=== PATIENT | female | born 1945 | race Two or more races ===

== ENCOUNTER 2019-01-27 14:14 | Emergency (ER) | payer SELFPAY ==
[~2019-01-27] VITALS: Ht 152.4 cm; Wt 113.4 kg
--- OUTSIDE RECORDS SUMMARY | ~2019-01-27 | XMS | Encounter Summary ---
Demographics + + + | Address | [address] | | | [place] [address] | + + + | Preferred Language | Unknown | + + + | Marital Status | | + + + | Protestant Affiliation | Unknown | + + + | Race | Unknown | + + + | Ethnic Group | Other Race | + + + Author + + + | Author | [facility] | + + + | Organization | [facility] | + + + | Address | Unknown | + + + | Phone | Unavailable | + + + Care Team Providers + +------+ + | Care Cast Shell Grinder Name | Role | Phone | + +------+ + PCP | Unavailable | + +------+ + Encounter Details +--------+ + + + + | Date | Type | Department | Care Team | Description | +--------+ + + + + | 06/15/ | Ancillary | Registration [address] | Other, Faculty | | | 2004 | Registratio | [address] | [phone] | | | | [address] | [address] Mailcode: [address] | | | | | | [place], [place] | | | | | | [address] | | | | | | [phone] | | | +--------+ + + + + Social History + +-------+ +--------+------+ | Tobacco Use | Types | Packs/Day | Years | Date | | | | | Used | | + +-------+ +--------+------+ | Never Assessed | | | | | + +-------+ +--------+------+ + + + | Sex Assigned at | Date Recorded | | | | + + + | Not on file | | + + + + + + + | Job Start Date | Occupation | Industry | + + + + | Not on file | Not on file | Not on file | + + + + + + + + | Travel History | Travel Start | Travel End | + + + + + + | No recent travel history available. | + + documented as of this encounter Plan of Treatment Not on filedocumented as of this encounter Procedures + +--------+ + + + | Procedure Name | Priori | Date/Time | Associated Diagnosis | Comments | | | ty | | | | + +--------+ + + + | HEMATOPATHOLOGY | Routin | 06/15/2004 | | Results for this | | | e | | | procedure are in the | | | | | | results section. | + +--------+ + + + documented in this encounter Results HEMATOPATHOLOGY (06/15/2004) + + + + + + | Component | Value | Ref Range | Performed | Pathologist | | | | | At | Signature | + + + + + + | HEMATOPATHO | SOURCE OF SPECIMEN:A | | [facility] | | | LOGY | Outside consultation | | DEPARTMENT | | | | Clinical History:The | | OF | | | | patient is a 58-year-old | | PATHOLOGY | | | | woman with follicular | | | | | | lymphoma. Final | | | | | | Pathologic | | | | | | Diagnosis:Lymph node, | | | | | | biopsy ([id number]): | | | | | | - Diffuse large | | | | | | B-cell lymphoma (70%) | | | | | | arising from | | | | | | follicularlymphoma, | | | | | | grade III (30%) Case | | | | | | reviewed by:Leo Renae, | | | | | | M.D., Ph.D. | | | | | | /HematopathologistT:05/30 | | | | | | 04/04/ I have reviewed | | | | | | all diagnostic slides | | | | | | and other materials and | | | | | | have editedall portions | | | | | | of this report as part | | | | | | of my pathologic | | | | | | assessment and | | | | | | finaldiagnosis. | | | | | | | | | | | | | | | | | | | | | | | | Gross | | | | | | Description:Received on | | | | | | 06/15/04 for evaluation | | | | | | from Dr. Rah Arnold, | | | | | | [facility], | | | | | | [place], [place], are | | | | | | seven slides and seven | | | | | | blocks, bearingaccession | | | | | | number [id number]. | | | | | | Microscopic | | | | | | Description:Sections of | | | | | | the lymph node biopsy | | | | | | reveals a nodular and | | | | | | diffuse | | | | | | lymphocyticinfiltrate. | | | | | | The nodular area shows | | | | | | small and large | | | | | | lymphocytes. Some | | | | | | ofthe nodules contain | | | | | | large cells>15/hpf. | | | | | | Diffuse area composed | | | | | | ofpredominantly large | | | | | | lymphocytes. The | | | | | | diffuse area is about | | | | | | 70% of theentire biopsy. | | | | | | Immunohistochemical | | | | | | stains were performed on | | | | | | blocks A2 and A4 by | | | | | | animmunoperoxidase | | | | | | technique with | | | | | | antibodies against CD3, | | | | | | CD20, CD10, CD21,and | | | | | | Bcl-2. The lymphoma | | | | | | cells are positive for | | | | | | CD20, CD10, and | | | | | | Bcl-2.CD21 highlights | | | | | | the nodular and diffuse | | | | | | areas. Background | | | | | | T-cells arepositive for | | | | | | CD3.(Analyte specific | | | | | | reagents are used in | | | | | | many laboratory tests | | | | | | necessary forstandard | | | | | | medical care and | | | | | | generally do not require | | | | | | FDA approval. This | | | | | | testwas developed and | | | | | | its performance | | | | | | characteristics | | | | | | determined by | | | | | | [facility]. It | | | | | | has not been cleared or | | | | | | approved by the [place] Food | | | | | | and | | | | | | DrugAdministration.)Rend | | | | | | matt Diagnostician: | | | | | | Leo Renae | | | | | | Simone,Ph.D.PathologistEle | | | | | | ctronically Signed | | | | | | 06/22/2004Comment: | | | | | | SOURCE OF SPECIMEN: | | | | | | Outside consultation | | | | + + + + + + + + | Specimen | + + | | + + + + + | Narrative | Performed At | + + + | Ordered by [facility] | | | DEPARTMENT OF | | | PATHOLOGY | + + + + + + + + | Performing | Address | City/State/Zipcode | Phone Number | | Organization | | | | + + + + + | [facility] | [address] | [place], [place] [address] | | | PATHOLOGY | [address] | | | + + + + + | [facility] | [address] | [place] [address] | | | PATHOLOGY | [address] | | | + + + + + documented in this encounter Visit Diagnoses Not on filedocumented in this encounter"
--- OUTSIDE RECORDS SUMMARY | ~2019-01-27 | XMS | Clinical Summary ---
Demographics + + + | Address | [address] | | | [place] [address] | + + + | Home Phone | | + + + | Preferred Language | Unknown | + + + | Marital Status | | + + + | Anabaptism Affiliation | [id number] | + + + | Race | Unknown | + + + | Ethnic Group | Unknown | + + + Author + + + | Author | [facility] (Historical as of | | | 10-14-18) | + + + | Organization | [facility] (Historical as of | | | 10-14-18) | + + + | Address | Unknown | + + + | Phone | Unavailable | + + + Support + + +---------+ + | Name | Relationship | Address | Phone | + + +---------+ + | AnneMarisa | ECON | Unknown | | | [place] | | | | + + +---------+ + | Sonya Rodríguez | ECON | Unknown | | | ([place]) | | | | + + +---------+ + | Vasiliy Hager | ECON | Unknown | | + + +---------+ + | Alli Rodríguez | ECON | Unknown | | + + +---------+ + Care Team Providers + +------+ + | Care Finisher Polisher Name | Role | Phone | + +------+ + | Tiarra Joyner PA-C | PP | | + +------+ + Allergies No Known Allergies Current Medications + + +---------+---------+------+------+-------+ | Prescription | Sig. | Disp. | Refills | Star | End | Statu | | | | | | t | Date | s | | | | | | Date | | | + + +---------+---------+------+------+-------+ | omeprazole | Take 20 mg by mouth | | | | | Activ | | (PRILOSEC) 20 MG | daily. | | | | | e | | capsule | | | | | | | + + +---------+---------+------+------+-------+ | levothyroxine | Take 75 mcg by mouth | | | | | Activ | | (SYNTHROID) 75 MCG | daily. | | | | | e | | tablet | | | | | | | + + +---------+---------+------+------+-------+ | loratadine | Take 10 mg by mouth | | | | | Activ | | (CLARITIN) 10 MG | daily. | | | | | e | | tablet | | | | | | | + + +---------+---------+------+------+-------+ | nitroGLYCERIN | Place 0.4 mg under | | | | | Activ | | (NITROSTAT) 0.4 MG | the tongue every 5 | | | | | e | | SL tablet | (five) minutes as | | | | | | | | needed for Chest | | | | | | | | pain. | | | | | | + + +---------+---------+------+------+-------+ | acetaminophen | Take 650 mg by mouth | | | | | Activ | | (TYLENOL) 325 MG | every 12 (twelve) | | | | | e | | tablet | hours as needed for | | | | | | | | Pain. | | | | | | + + +---------+---------+------+------+-------+ | senna (SENOKOT) | Take 17.2 mg by | | | 08/29 | | Activ | | 8.6 MG tablet | mouth daily. | | | 04/19 | | e | | | | | | 18 | | | + + +---------+---------+------+------+-------+ | Insulin | BD Insulin Syringe | | | | | Activ | | Syringe-Needle U-100 | Ultra-Fine 0.5 mL 31 | | | | | e | | (INSULIN SYRINGE | gauge x 5/16" | | | | | | | .5CC/31GX5/16") 31G | | | | | | | | X 5/16" 0.5 ML MISC | | | | | | | + + +---------+---------+------+------+-------+ | gabapentin | 100 mg. | | | | | Activ | | (NEURONTIN) 100 MG | | | | | | e | | capsule | | | | | | | + + +---------+---------+------+------+-------+ | albuterol | Inhale 2 puffs into | | | 11 | | Activ | | (PROVENTIL | the lungs. | | | 0/20 | | e | | HFA;VENTOLIN HFA) | | | | 18 | | | | 108 (90 Base) | | | | | | | | MCG/ACT inhaler | | | | | | | + + +---------+---------+------+------+-------+ | clopidogrel | Take 1 tablet by | 90 | 0 | 04/1 | 04/1 | Activ | | (PLAVIX) 75 MG | mouth daily. | tablet | | 7/20 | 6/20 | e | | tablet | | | | 19 | 20 | | + + +---------+---------+------+------+-------+ | insulin - MIX | Inject 10 Units into | 10 mL | 0 | 08/1 | | Activ | | insulin NPH-insulin | the skin 2 (two) | | | 0/20 | | e | | regular 70/30 | times daily before | | | 19 | | | | (HUMULIN 70/30) | meals. | | | | | | | (70-30) 100 UNIT/ML | | | | | | | | injection | | | | | | | + + +---------+---------+------+------+-------+ | sevelamer | Take 2 tablets by | 180 | 1 | 08/1 | 08/0 | Activ | | (RENVELA) 800 MG | mouth 3 (three) | tablet | | 0/20 | 9/20 | e | | tablet | times daily with | | | 19 | 20 | | | | meals. | | | | | | + + +---------+---------+------+------+-------+ | oxycodone 10 MG | Take by mouth. | | | | | Activ | | tablet | | | | | | e | + + +---------+---------+------+------+-------+ | sertraline | Take 50 mg by mouth | | | | | Activ | | (ZOLOFT) 50 MG | daily. | | | | | e | | tablet | | | | | | | + + +---------+---------+------+------+-------+ | meclizine | Take 25 mg by mouth | | | | | Activ | | (ANTIVERT) 25 MG | 3 (three) times | | | | | e | | tablet | daily as needed. | | | | | | + + +---------+---------+------+------+-------+ | pravastatin | Take 1 tablet by | 30 | 11 | 09/28 | 09/28 | Activ | | (PRAVACHOL) 20 MG | mouth nightly. | tablet | | 10/17 | 09/16 | e | | tablet | | | | 19 | 20 | | + + +---------+---------+------+------+-------+ | aspirin 81 MG | Take 1 tablet by | 30 | 1 | 11/30 | 11/30 | Expir | | tablet | mouth daily with | tablet | | 03/19 | 03/19 | ed | | | breakfast. | | | 18 | 19 | | + + +---------+---------+------+------+-------+ Active Problems + + + | Problem | Noted Date | + + + | ESRD on hemodialysis (HCC) | 10/05/2018 | + + + | Diabetic neuropathy associated with type 2 diabetes mellitus | 10/03/2018 | | (HCC) | | + + + | Depression | 10/03/2018 | + + + | Peripheral vascular disease (HCC) | 10/03/2018 | + + + | CVA (cerebral vascular accident) ([facility]) | 10/03/2018 | + + + | Chronic bilateral low back pain with left-sided sciatica | 03/12/2018 | + + + + + | Overview: Last Assessment & Plan: It is possible the | | patient's foot pain could be a symptom of lumbar radiculopathy. | | I do not believe the patient would be a very good surgical | | candidate. But further work-up should be pursued if she is not | | responding well to therapy directed from podiatry. Patient | | apparently has had this pain for long-standing issue. | + + + + + | Mediastinal adenopathy | 03/07/2018 | + + + + + | Overview: Added automatically from request for surgery [id number] | + + + + + | Severe protein-calorie malnutrition (HCC) | 01/31/2018 | + + + | Lymphadenopathy | 01/24/2018 | + + + + + | Overview: Added automatically from request for surgery [id number] | + + + + + | Headache | 12/25/2017 | + + + | QT prolongation | 11/05/2017 | + + + | Musculoskeletal chest pain | 10/30/2017 | + + + | Secondary hyperparathyroidism of renal origin (HCC) | 09/05/2017 | + + + | Squamous cell carcinoma of cervix (HCC) | 09/05/2017 | + + + | Multiple pulmonary nodules | 09/03/2017 | + + + | Uterine cancer (HCC) | 09/03/2017 | + + + | Primary cancer of uterus with metastasis to other site (HCC) | 09/03/2017 | + + + | Postmenopausal bleeding | 08/31/2017 | + + + | 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 | 08/31/2017 | | dialysis, with long-term current use of insulin (HCC) | | + + + | First degree atrioventricular block | 08/14/2017 | + + + | Renal cyst | 08/05/2017 | + + + | Steatosis of liver | 08/05/2017 | + + + | Parapneumonic effusion | 07/28/2017 | + + + | Degeneration of intervertebral disc | 06/25/2017 | + + + | 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 | 05/15/2017 | + + + | Diabetic retinopathy (HCC) | 08/25/2016 | + + + | Hypothyroidism | 08/25/2016 | + + + | Globus hystericus | 08/25/2016 | + + + | Gastric ulcer | 08/25/2016 | + + + | Chronic constipation | 08/25/2016 | + + + | Coronary atherosclerosis | 08/25/2016 | + + + | Essential hypertension | 08/25/2016 | + + + | Neuritis | 08/25/2016 | + + + | Atherosclerosis of coronary artery | 08/25/2016 | + + + | Abnormal result of cardiovascular function study | 10/20/2015 | + + + | Vitamin D deficiency | 10/15/2015 | + + + | Diffuse large B-cell lymphoma of lymph nodes of multiple sites | 08/28/2015 | | (HCC) | | + + + | GERD (gastroesophageal reflux disease) | 05/25/2015 | + + + | Hyperlipidemia | 05/25/2015 | + + + | GERD (gastroesophageal reflux disease) | 05/25/2015 | + + + | Renovascular hypertension | 03/17/2015 | + + + | Anemia of chronic renal failure, stage 5 (HCC) | 03/17/2015 | + + + | Hypoalbuminemia | 03/17/2015 | + + + | Hyperphosphatemia | 03/17/2015 | + + + | Nonspecific abnormal electrocardiogram (ECG) (EKG) | 03/11/2015 | + + + | Diabetes mellitus, insulin dependent (IDDM), uncontrolled | 03/11/2015 | + + + + + | Overview: On Insulin ADVANCED MANUFACTURING TECHNICIAN will continue and monitor POCT | + + + + + | Left leg pain | 03/07/2015 | + + + + + | Overview: 2 weeks ago seen by Vascular has good flow on | | angiography but still complaining of Pain on Plavix and ASA | + + + + + | Hypertension associated with stage 5 chronic kidney disease due | 03/07/2015 | | to type 2 diabetes mellitus (HCC) | | + + + | ESRD on dialysis | 03/07/2015 | + + + + + | Overview: Overview: Patient currently receives dialysis on | | Tuesday, Tuesday and TuesdayThe patient is having difficulty with | | compliance Last Assessment & Plan: Patient told me I was | | supposed to make adjustments to her dialysis and hypertension | | management because she continues to have low blood pressure | | problems which have been noted for some time. Her blood pressure | | was normal at today's exam. I advised the patient that I do not | | manage dialysis. It is unclear if her medications may be | | causing her to be hypertensive. I would like her to reduce her | | use of oxycodone prior to dialysis. She was having this problem | | before she was started using oxycodone. I had spoke to | | nephrology about using oxycodone and felt it was okay the lower | | dosing. Absolutely avoid use of morphine. | + + + + + | Chronic pain | 03/07/2015 | + + + | Right renal mass | 03/07/2015 | + + + | Malignant lymphoma, large cell, diffuse (HCC) | 01/22/2014 | + + + | Malignant lymphoma, small lymphocytic (HCC) | 01/22/2014 | + + + | Warts | 08/22/2012 | + + + | Murmur, cardiac | 09/27/2011 | + + + | DM (diabetes mellitus), type 2 | 12/30/2010 | + + + | Hypertension | 11/05/2010 | + + + | Fibromyositis | 11/25/2009 | + + + | Major depression, single episode | 05/13/2009 | + + + Resolved Problems + + + + | Problem | Noted | Resolved | | | Date | Date | + + + + | Hyperkalemia | 02/04/20 | | | | 18 | 9 | + + + + + + | Overview: K 6.8 with EKG Changes Bradycardia | | Nephrology consulted will do HD tonite | + + + + + + | DEAL (dyspnea on exertion) | 12/26/19 | | | | 18 | 8 | + + + + | Chest pressure | 12/26/19 | | | | 18 | 8 | + + + + | Subcapsular hepatic hematoma | 11/20/19 | | | | 18 | 9 | + + + + | Hypotension | 11/20/19 | | | | 18 | 8 | + + + + | Severe anemia | 11/20/19 | | | | 18 | 8 | + + + + | Post-op pain | 11/20/19 | | | | 18 | 8 | + + + + | Acute posthemorrhagic anemia | 11/06/19 | | | | 18 | 8 | + + + + | Hyperkalemia | 11/06/19 | | | | 18 | 8 | + + + + | Syncope and collapse | 11/06/19 | | | | 18 | 8 | + + + + | Hypotension due to blood loss | 11/06/19 | | | | 18 | 8 | + + + + | Postoperative hypovolemic shock | 11/06/19 | | | | 18 | 8 | + + + + | Metabolic encephalopathy | 11/02/19 | | | | 18 | 8 | + + + + | Hyperkalemia | 10/31/19 | | | | 18 | 8 | + + + + | Symptomatic bradycardia | 10/31/19 | | | | 18 | 9 | + + + + | Endomyometritis | 09/04/19 | | | | 18 | 8 | + + + + | Acute endometritis | 09/01/19 | | | | 18 | 8 | + + + + | Sepsis (HCC) | 09/01/19 | | | | 18 | 8 | + + + + | Cholecystitis | 08/15/19 | | | | 18 | 8 | + + + + | Shortness of breath | 07/29/19 | | | | 18 | 9 | + + + + | Syncope | 07/29/19 | | | | 18 | 8 | + + + + | Elevated INR | 05/14/19 | | | | 18 | 8 | + + + + | Anemia | 05/13/19 | | | | 18 | 8 | + + + + | Gallstone pancreatitis | 11/30/19 | | | | 17 | 7 | + + + + | Calculus of gallbladder | 11/30/19 | | | | 17 | 8 | + + + + | Anemia of chronic renal failure, unspecified stage | 06/23/19 | | | | 17 | 8 | + + + + | Hypertensive urgency | 05/25/19 | | | | 16 | 8 | + + + + | Epigastric abdominal pain | 05/25/19 | | | | 16 | 8 | + + + + | Hyperphosphatemia | 03/17/19 | | | | 16 | 8 | + + + + | Upper GI bleed | 03/11/19 | | | | 16 | 8 | + + + + | Acute blood loss anemia | 03/11/19 | | | | 16 | 8 | + + + + | Hyperkalemia | 03/11/19 | | | | 16 | 8 | + + + + | Hypothermia | 03/11/19 | | | | 16 | 6 | + + + + | Decreased level of consciousness | 03/11/19 | | | | 16 | 8 | + + + + | Weakness of left upper extremity | 03/11/19 | | | | 16 | 9 | + + + + | Generalized abdominal pain | 03/07/19 | | | | 16 | 6 | + + + + | Fever in adult | 03/07/19 | | | | 16 | 6 | + + + + | Bacterial pneumonia, unspecified | 04/05/19 | | | | 13 | 6 | + + + + | Nausea with vomiting | 04/05/19 | | | | 13 | 6 | + + + + | Gastroenteritis, acute | 09/27/19 | | | | 12 | 6 | + + + + | Chest pain at rest | 09/27/19 | | | | 12 | 6 | + + + + | Metabolic acidosis | 09/27/19 | | | | 12 | 6 | + + + + | Hyperkalemia | 09/26/19 | | | | 12 | 6 | + + + + | Diarrhea | 09/26/19 | | | | 12 | 6 | + + + + | Abdominal pain | 09/26/19 | | | | 12 | 8 | + + + + | Vomiting | 09/26/19 | | | | 12 | 6 | + + + + | Pneumonia, organism unspecified(486) | 12/31/19 | | | | 11 | 6 | + + + + | Hypotension | 04/24/19 | | | | 10 | 8 | + + + + Immunizations + + + + | Name | Dates Previously Given | Next Due | + + + + | Pneumococcal | 09/27/2011 | | | Polysaccharide | | | | 23-valent | | | + + + + Family History + + +------+ + | Medical History | Relation | Name | Comments | + + +------+ + | Heart disease | Father | | | + + +------+ + | Hypertension | Mother | | | + + +------+ + | Diabetes | Other | | | + + +------+ + | Kidney disease | Neg Hx | | | + + +------+ + | Malig hypertherm | Neg Hx | | | + + +------+ + + +------+ + + | Relation | Name | Status | Comments | + +------+ + + | Father | | | at 81 with [place] | + +------+ + + | Mother | | Alive | | + +------+ + + | Other | | | | + +------+ + + Social History + +-------+ +--------+------+ | Tobacco Use | Types | Packs/Day | Years | Date | | | | | Used | | + +-------+ +--------+------+ | Never Smoker | | | | | + +-------+ +--------+------+ + +---+---+---+ | Smokeless Tobacco: | | | | | Never Used | | | | + +---+---+---+ + + +---------+ + | Alcohol Use | Drinks/We | oz/Week | Comments | | | ek | | | + + +---------+ + | No | | | | + + +---------+ + + + + | Sex Assigned at | Date Recorded | | | | + + + | Not on file | | + + + Last Filed Vital Signs + + + + | Vital Sign | Reading | Time Taken | + + + + | Blood Pressure | 112/64 | 10/11/2018 9:41 AM PDT | + + + + | Pulse | 46 | 10/11/2018 9:41 AM PDT | + + + + | Temperature | 36.6 C (97.9 F) | 10/07/2018 3:19 PM PDT | + + + + | Respiratory Rate | 16 | 10/07/2018 3:19 PM PDT | + + + + | Oxygen Saturation | 99% | 10/11/2018 9:41 AM PDT | + + + + | Inhaled Oxygen | - | - | | Concentration | | | + + + + | Weight | 68.9 kg (152 lb) | 10/11/2018 9:41 AM PDT | + + + + | Height | 152.4 cm (5') | 10/11/2018 9:41 AM PDT | + + + + | Body Mass Index | 29.69 | 10/11/2018 9:41 AM PDT | + + + + Plan of Treatment +--------+ + + + + | Date | Type | Specialty | Care Team | Description | +--------+ + + + + | 02/01/ | Appointment | | | | | 2018 | | | | | +--------+ + + + + | 02/01/ | Appointment | | | | | 2018 | | | | | +--------+ + + + + | 02/01/ | Office | | Mirela Mcdaniel DNP | | | 2019 | Visit | | [address] | | | | | | [place] | | | | | | [address] | | | | | | | | +--------+ + + + + + + + + + | Health Maintenance | Due Date | Last Done | Comments | + + + + + | Diabetic Eye Exam | | | | | | 7 | | | + + + + + | Diabetic Foot Exam | | | | | | 7 | | | + + + + + | Vaccine: | | | | | Dtap/Tdap/Td (1 - | 6 | | | | Tdap) | | | | + + + + + | Breast Cancer | | | | | Screening | 7 | | | | (Mammogram) | | | | + + + + + | Colon Cancer | | | | | Screening | 7 | | | | (Colonoscopy) | | | | + + + + + | Vaccine: Zoster (1 | | | | | of 2) | 7 | | | + + + + + | DEXA SCAN SCREENING | | | | | | 2 | | | + + + + + | Vaccine: | | 09/27/2011 | | | Pneumococcal 65+ | 3 | | | | High/Highest Risk (2 | | | | | of 2 - PCV13) | | | | + + + + + | Vaccine: Influenza | | | | | (#1) | 9 | | | + + + + + | Hemoglobin A1c | | 10/03/2018, 12/26/2017, | | | | 9 | 09/01/2017, Additional history | | | | | exists | | + + + + + Results Not on filefrom Last 3 Months Insurance + +--------+ +------+-------+---------+ | Payer | Benefi | Subscriber | Type | Phone | Address | | | t Plan | ID | | | | | | / | | | | | | | Group | | | | | + +--------+ +------+-------+---------+ | [employer] | [employer] | [id number] | | | | | | HEALTH | | | | | | | PLAN | | | | | + +--------+ +------+-------+---------+ + +--------+ +--------+ + + | Guarantor Name | Accoun | Relation to | Date | Phone | Billing Address | | | t Type | Patient | of | | | | | | | | | | + +--------+ +--------+ + + | JANY [place]LLINS [place] | Person | Self [birth year] | Home: | [address] | | [place] | al/Fam | | [phone] | [phone] [place] | | | [place] | | [phone] | + +--------+ +--------+ + +
--- OUTSIDE RECORDS SUMMARY | ~2019-01-27 | XMS | Encounter Summary ---
Demographics + + + | Address | [address] | | | [place] [address] | + + + | Preferred Language | Unknown | + + + | Marital Status | | + + + | Sabianism Affiliation | Unknown | + + + | Race | Unknown | + + + | Ethnic Group | Other Race | + + + Author + + + | Author | [facility] | + + + | Organization | [facility] | + + + | Address | Unknown | + + + | Phone | Unavailable | + + + Care Team Providers + +------+ + | Care Tumbling Machine Operator Name | Role | Phone | + +------+ + PCP | Unavailable | + +------+ + Encounter Details +--------+ + + + + | Date | Type | Department | Care Team | Description | +--------+ + + + + | 06/15/ | Ancillary | Registration [address] | Other, Faculty | | | 2004 | Registratio | [address] | [phone] | | | | [address] | [address] Mailcode: [id number] | | | | | | [place], [place] | | | | | | [address] | | | | | | [phone] | | | +--------+ + + + [...] | | | | | | biopsy ([id number]): | | | | | | - [...] [place], | | | | | | [facility], | | | | | | [place], [place], are | | | | | | seven slides and seven | | | | | | blocks, bearingaccession | | | | | | number [id number]. | | | | | | Microscopic [...] DEPARTMENT OF | [address] | [place], [place] [address] | | | PATHOLOGY | [address] | | | + + + + + | [facility] | [address] | [place] [address] | | | PATHOLOGY | [address] | | | + + + + + documented in this encounter Visit Diagnoses Not on filedocumented in this encounter"
--- OUTSIDE RECORDS SUMMARY | ~2019-01-27 | XMS | Clinical Summary ---
Demographics + + + | Address | [address] | | | [place] [address] | + + + | Home Phone | | + + + | Preferred Language | Unknown | + + + | Marital Status | | + + + | Yarsanism Affiliation | [id number] | + + + | Race | Unknown | + + + | Ethnic Group | Unknown | + + + Author + + + | Author | [employer] (Historical as of | | | 10-14-18) | + + + | Organization | [facility] [employer] (Historical as of | | | 10-14-18) | + + + | Address | Unknown | + + + | Phone | Unavailable | + + + Support + + +---------+ + | Name | Relationship | Address | Phone | + + +---------+ + | AnneMarisa | ECON | Unknown | | | [place] | | | | + + +---------+ + | Sonya Rodríguez | ECON | Unknown | | | ([place]) | | | | + + +---------+ + | Vasiliy Hager | ECON | Unknown | | + + +---------+ + | Alli Rodríguez | ECON | Unknown | | + + +---------+ + Care Team Providers + +------+ + | Care Industrial Paramedic Name | Role | Phone | + [...] + + | CVA (cerebral vascular accident) ([facility]) | 10/03/2018 | + + + | [...] Overview: Added automatically from request for surgery [id number] | + + + + + | Severe protein-calorie malnutrition (HCC) | 01/31/2018 | + + + | Lymphadenopathy | 01/24/2018 | + + + + + | Overview: Added automatically from request for surgery [id number] | + + + + + | [...] + + + | Overview: On Insulin NURSE RECEPTIONIST will continue and monitor POCT | + [...] Father | | | at 81 with [place] | + +------+ + + | Mother [...] [place] | | | | | | [address] | | | | | | | [...] | ODS HEALTH PLAN | ODS | [id number] | | | | | | HEALTH [...] | + +--------+ +--------+ + + | JAYN [place]INS [place] | Person | Self [birth year] Home: | [address] | | [place] | al/Fam | | [phone] | [phone] [place] | | | karishma | | | [phone] | [phone] | + +--------+ +--------+ + +
--- OUTSIDE RECORDS SUMMARY | ~2019-01-27 | XMS | Clinical Summary ---
Demographics + + + | Address | [address] | | | [place] [address] | + + + | Preferred Language | Unknown | + + + | Marital Status | | + + + | Anabaptism Affiliation | Unknown | + + + | Race | Unknown | + + + | Ethnic Group | Other Race | + + + Author + + + | Author | [facility] | + + + | Organization | [facility] | + + + | Address | Unknown | + + + | Phone | Unavailable | + + + Care Team Providers + +------+ + | Care Typing Office Worker Name | Role | Phone | + +------+ + PCP | Unavailable | + +------+ + Source Comments SRIKANTH is fully live on both [facility] Amb[facility] and [facility] InPatient.[facility] Allergies Not on File Medications Not on file Active Problems Not on file Social History + +-------+ +--------+------+ | Tobacco [...] recent travel history available. | + + Last Filed Vital Signs Not on file Plan of Treatment + + + + + | Health Maintenance | Due Date | Last Done | Comments | + + + + + | Pneumococcal | | | | | vaccination (1 of 2 | 2 | | | | - PCV13) | | | | + + + + + | Influenza (Flu) | | | | | vaccination (#1) | 9 | | | + + + + + Results Not on filefrom Last 3 Months"
--- OUTSIDE RECORDS SUMMARY | ~2019-01-27 | XMS | Clinical Summary ---
Demographics + + + | Address | [address] | | | [place] [address] | + + + | Preferred Language | Unknown | + + + | Marital Status | | + + + | Buddhist Affiliation | Unknown | + + + | Race | Unknown | + + + | Ethnic Group | Other Race | + + + Author + + + | Author | [facility] | + + + | Organization | [facility] | + + + | Address | Unknown | + + + | Phone | Unavailable | + + + Care Team Providers + +------+ + | Care Wrapper Counter Name | Role | Phone | + +------+ + PCP | Unavailable | + +------+ + Source Comments SRIKANTH is fully live on both [facility] Ambulatory and [facility] InPatient.[facility] Allergies Not on File Medications Not [...]
== END 2019-01-27 17:05 | disposition left against medical advice (07) ==
LOC: ED 14:14
DX: Z53.21 Procedure and treatment not carried out due to patient leaving prior to being seen by health care provider (principal)